=== PATIENT | female | born 1970 | race Two or more races ===

== ENCOUNTER 2022-10-08 06:49 | Emergency (ER) | payer BC, OTHER ==
[~2022-10-08] VITALS: Ht 162.6 cm; Wt 72.1 kg
--- NOTE | 2022-10-08 07:10 | NUR ---
RECEIVED PT FROM [facility] PT PT 52 YRS FEMALE FROM HOME C/O HEADACHE FOR 2 DAY ACCOMPANY BY MOTHER PAIN 03/26
--- NOTE | 2022-10-08 07:15 | NUR ---
PT REFUSED TO STARE IV LINE FOR GIVE MEDICTION REQUSTED OK GIVE IM NOTEFED OKY TO GIVE MORPHINE AND ZOFRAN IM NOW
[2022-10-08] MEDS ORDERED: MORPHINE SULFATE INJ 4 MG/ML DISP.SYRIN ONE (07:25)
[2022-10-08] MEDS ORDERED: ONDANSETRON HCL/PF 4 MG/2 ML VIAL ONE (07:25)
[2022-10-08] MEDS: MORPHINE SULFATE INJ 2 MG/ML DISP.SYRIN IV ONE (07:36)
[2022-10-08] MEDS: ONDANSETRON HCL/PF 4 MG/2 ML VIAL IVP ONE (07:37)
--- NOTE | 2022-10-08 08:03 | NUR ---
TO ct scan of head
[2022-10-08] MEDS ORDERED: IBUP-1957 PO (08:32)
[2022-10-08] MEDS ORDERED: AZIT250T13 PO (08:32)
[2022-10-08] MEDS ORDERED: CETI1TAB9 PO (08:32)
[2022-10-08] MEDS ORDERED: KETOROLAC TROMETHAMINE INJ 30 MG/ML VIAL ONE (08:33)
[2022-10-08] MEDS: KETOROLAC TROMETHAMINE INJ 60 MG/2 ML VIAL IM ONE (08:40)
--- NOTE | 2022-10-08 08:40 | NUR ---
HEADCHE 02/24 TORADOL 30MG IM GIVEN ON RT ARM
--- NOTE | 2022-10-08 09:00 | NUR ---
PT FEELING IMPROVING AND HEADACH REALEVED
--- NOTE | 2022-10-08 09:30 | NUR ---
Patient discharged to home in stable condition. Written and verbal after care instructions given. Patient verbalizes understanding of instruction.
[2022-10-08 09:35] VITALS: BP 128/80
== END 2022-10-08 09:37 | disposition home or self-care (01) ==
LOC: ER 06:51
DX: J32.9 Chronic sinusitis, unspecified (principal); Z88.8 Allergy status to other drugs, medicaments and biological substances
CPT/HCPCS: 99285; 70450; 96372 ×2; J2270; J1885; J2405

== ENCOUNTER 2024-06-08 17:15 | Emergency (ER) | payer BC, OTHER ==
[~2024-06-08] VITALS: Ht 162.6 cm; Wt 72.6 kg
[~2024-06-08 17:15] MED LIST: AZIT250T13 PO; CETI1TAB9 PO; IBUP-1957 PO
[2024-06-08 21:17] LABS: BASOPHILS # (AUTO) 0.1 K/uL (0.0-0.2); EOSINOPHILS # (AUTO) 0.2 K/uL (0.0-0.7); EOSINOPHILS % (AUTO) 2.8 % (0.0-6.0); HEMATOCRIT 40 % (33-45); HEMOGLOBIN 13.4 g/dL (11.5-14.8); LYMPHOCYTES # (AUTO) 1.6 K/uL (0.8-4.8); LYMPHOCYTES % (AUTO) 21.9 % (20.0-44.0); MEAN CORPUSCULAR HEMOGLOBIN 29 PG (26.0-33.0); MEAN CORPUSCULAR HGB CONC 33 g/dl (31.0-36.0); MEAN CORPUSCULAR VOLUME 86 fL (82-100); MONOCYTES # (AUTO) 0.6 K/uL (0.1-1.30); NEUTROPHILS # (AUTO) 4.8 K/uL (1.8-8.9); NEUTROPHILS % (AUTO) 66.3 % (43.0-81.0); PLATELET COUNT (AUTO) 286 K/uL (150-450); RED BLOOD CELL COUNT(AUTO) 4.68 MIL/uL (4.0-5.2); RED CELL DISTRIBUTION WIDTH 13.3 % (11.5-15.0); WHITE BLOOD COUNT (AUTO) 7.3 K/uL (4.3-11.0)
[2024-06-08 21:27] LABS: CALCIUM, SERUM 8.9 mg/dL (8.5-10.1); CREATININE 0.7 mg/dL (0.6-1.3); POTASSIUM 3.2 mmol/L (3.5-5.1)
[2024-06-08] MEDS ORDERED: AMOX-430 PO (22:03)
[2024-06-08] MEDS ORDERED: KETOROLAC TROMETHAMINE INJ 30 MG/ML VIAL ONE (22:03)
[2024-06-08] MEDS ORDERED: AMOX/CLAVULANATE 875 MG TABLET ONE (22:03)
[2024-06-08] MEDS ORDERED: POTASSIUM CHLORIDE 20 MEQ TAB.PRT.SR PO ONE (22:03)
[2024-06-08] MEDS: AMOX/CLAVULANATE 875 MG TABLET PO ONE (22:13)
[2024-06-08] MEDS: KETOROLAC TROMETHAMINE INJ 30 MG/ML VIAL IM ONE (22:13)
[2024-06-08] MEDS: POTASSIUM CHLORIDE 20 MEQ TAB.PRT.SR PO ONE (22:13)
[2024-06-08 22:16] VITALS: BP 140/76; TEMP 97.8; O2SAT 100
[2024-06-08 22:21] LABS: PREGNANCY TEST URINE QUAL NEGATIVE (NEGATIVE)
[2024-06-08 22:40] LABS: APPEARANCE,URINE CLEAR (CLEAR); BILIRUBIN,URINE 1+ (NEGATIVE); BLOOD, URINE 1+ Ery/uL (NEGATIVE); COLOR,URINE YELLOW (YELLOW); KETONES,URINE 3+ mg/dL (NEGATIVE); LEUKOCYTE ESTERASE ,URINE NEGATIVE (NEGATIVE); NITRITE, URINE NEGATIVE (NEGATIVE); PROTEIN,URINE NEGATIVE (NEGATIVE); UGLUCOSE NEGATIVE (NEGATIVE)
[2024-06-08 22:53] LABS: ADD URINE CULTURE YES; BACTERIA,URINE 3+ /HPF (None Seen); SQUAMOUS EPITHELIAL CELL,UR 21-50 /HPF (None Seen); WBC,URINE 0-2 /HPF (0-3)
== END 2024-06-08 22:16 | disposition home or self-care (01) ==
LOC: ER 17:24
DX: K57.32 Diverticulitis of large intestine without perforation or abscess without bleeding (principal); R10.2 Pelvic and perineal pain; E78.5 Hyperlipidemia, unspecified; I10 Essential (primary) hypertension; Z79.1 Long term (current) use of non-steroidal anti-inflammatories (NSAID)
CPT/HCPCS: 99285; 74176; 96372; 85025; 80048; 87086; 84703; 81001; 36415; 84702; J1885